=== PATIENT | male | born 1985 | race Hispanic/Latino ===

== ENCOUNTER 2022-08-05 23:23 | Emergency (ER) | payer SELFPAY ==
[~2022-08-05] VITALS: Ht 167.6 cm; Wt 65.8 kg
[2022-08-05] MEDS ORDERED: MECLIZINE HCL 12.5 MG TAB PO ONE (23:45)
[2022-08-05] MEDS ORDERED: ONDANSETRON HCL 4 MG ORAL DISINTEGRATING TAB PO ONE (23:45)
[2022-08-06] MEDS ORDERED: ANTIVERT25 M1 PO (00:47)
[2022-08-06] MEDS ORDERED: ONDANSETRON ODT4 MG PO (00:47)
[2022-08-06 01:11] VITALS: BP 122/80
== END 2022-08-06 01:05 | disposition home or self-care (01) ==
LOC: ER 23:34
DX: R42 Dizziness and giddiness (principal); R11.2 Nausea with vomiting, unspecified; E78.00 Pure hypercholesterolemia, unspecified
CPT/HCPCS: 70450; 99283; J8597; Q0162